=== PATIENT | male | born 1995 | race African-American/Black ===

== ENCOUNTER 2021-01-31 15:38 | Emergency (ER) | payer MEDICAID ==
[~2021-01-31] VITALS: Ht 177.8 cm; Wt 139.0 kg
[2021-01-31] MEDS ORDERED: FAMOTIDINE 20MG/2ML VIAL IV STA (17:41)
[2021-01-31] MEDS ORDERED: ONDANSETRON HCL 4MG/2ML INJ IV STA (17:41)
[2021-01-31] MEDS ORDERED: SODIUM CHLORIDE 0.9% 1,000 ML IV ONE (17:45)
[2021-01-31 18:01] LABS: HEMATOCRIT. 41.6 % (42.0-52.0); HEMOGLOBIN. 14.2 g/dL (14.0-18.0); MEAN CORPUSCULAR HEMOGLOBIN 30.3 pg (28.0-32.0); MEAN CORPUSCULAR VOLUME 89.1 fL (80.0-94.0); PLATELET 159 x1000/uL (130-400); RED BLOOD CELL COUNT 4.67 mill/uL (4.7-6.1); RED CELL DISTRIBUTION WIDTH 13.4 % (11.6-14.6)
[2021-01-31 18:05] LABS: CHLORIDE 103 mEq/L (98-107)
[2021-01-31 18:29] LABS: PLATELET ESTIMATE NORMAL
[2021-01-31] MEDS ORDERED: ONDA4TAB5 MT (19:35)
[2021-01-31 21:05] VITALS: BP 115/76
== END 2021-01-31 21:27 | disposition home or self-care (01) ==
LOC: ER 15:38
DX: R11.2 Nausea with vomiting, unspecified (principal); K29.00 Acute gastritis without bleeding
CPT/HCPCS: 36415; 80053; 83690; 83735; 85025; 96374; 96375; 99284; J2405; J3490; J7030; Z7610

== ENCOUNTER 2021-02-04 15:44 | Emergency (ER) | payer MEDICAID ==
[~2021-02-04] VITALS: Ht 188 cm; Wt 140.0 kg
[~2021-02-04 15:44] MED LIST: ONDA4TAB5 MT
[2021-02-04] MEDS ORDERED: ACETAMINOPHEN 325MG TABLET PO ONE (16:15)
[2021-02-04] MEDS ORDERED: ONDANSETRON HCL 4MG/2ML INJ IV ONE (16:15)
[2021-02-04] MEDS ORDERED: SODIUM CHLORIDE 0.9% 1,000 ML IV ONE ×3 (16:15→20:45)
[2021-02-04 16:37] LABS: BASOPHILS % 1.1 % (0.0-2.0); HEMATOCRIT. 47.1 % (42.0-52.0); HEMOGLOBIN. 15.9 g/dL (14.0-18.0); LYMPHOCYTES % 15.7 % (20.0-50.0); MEAN CORPUSCULAR HEMOGLOBIN 30.2 pg (28.0-32.0); MEAN CORPUSCULAR VOLUME 89.5 fL (80.0-94.0); MONOCYTES % 6.9 % (2.0-8.0); NEUTROPHILS % 76.3 % (40.0-76.0); PLATELET 153 x1000/uL (130-400); RED BLOOD CELL COUNT 5.26 mill/uL (4.7-6.1); RED CELL DISTRIBUTION WIDTH 13.7 % (11.6-14.6)
[2021-02-04 16:43] LABS: CHLORIDE 102 mEq/L (98-107)
[2021-02-04 16:44] LABS: INR 1.2; PROTHROMBIN TIME 13.2 sec (9.6-11.0)
[2021-02-04] MEDS ORDERED: PANTOPRAZOLE SODIUM 40 MG/VIAL IV ONE (16:45)
[2021-02-04 20:23] LABS: CLARITY URINE CLEAR (CLEAR); COLOR URINE DARK YELLOW (YELLOW); KETONES URINE 4+ (NEGATIVE); LEUKOCYTE ESTERASE URINE NEGATIVE (NEGATIVE); NITRITE URINE NEGATIVE (NEGATIVE); OCCULT BLOOD URINE NEGATIVE (NEGATIVE); PROTEIN URINE 2+ (NEGATIVE); SPECIFIC GRAVITY URINE 1.038 (1.005-1.030)
[2021-02-04 20:35] LABS: *AMPHETAMINES SCREEN URINE NEGATIVE (NEGATIVE); *BARBITURATES SCREEN URINE NEGATIVE (NEGATIVE); *BENZODIAZEPINES SCREEN URINE NEGATIVE (NEGATIVE)
[2021-02-04 20:36] LABS: *COCAINE SCREEN URINE NEGATIVE (NEGATIVE); CANNABINOID URINE SCREEN NEGATIVE (NEGATIVE); METHADONE URINE SCREEN NEGATIVE (NEGATIVE); OPIATES URINE SCREEN NEGATIVE (NEGATIVE); PHENCYCLIDINE URINE SCREEN NEGATIVE (NEGATIVE)
[2021-02-04] MEDS ORDERED: CEFTRIAXONE 1 G PREMIX 50 ML IV ONE (21:00)
[2021-02-04] MEDS ORDERED: CEFP200T14 MT (22:10)
[2021-02-04] MEDS ORDERED: ONDA4TAB5 MT (22:10)
[2021-02-04 22:19] VITALS: BP 128/81
== END 2021-02-04 22:58 | disposition home or self-care (01) ==
LOC: ER 15:44
DX: B34.9 Viral infection, unspecified (principal); E86.0 Dehydration
CPT/HCPCS: 36415; 71045; 80053; 80305; 81003; 83690; 85025; 85610; 87086; 93005; 96361; 96365; 96375; 99285; C9113; J0696; J2405; J7030

== ENCOUNTER 2021-02-08 15:38 | Emergency (ER) | payer MEDICAID ==
[~2021-02-08] VITALS: Ht 185.4 cm; Wt 114.0 kg
[~2021-02-08 15:38] MED LIST changes: +CEFP200T14 MT
[2021-02-08] MEDS ORDERED: ACETAMINOPHEN 325MG TABLET PO STA (16:06)
[2021-02-08] MEDS ORDERED: CEFTRIAXONE 1 G PREMIX 50 ML IV ONE (16:15)
[2021-02-08] MEDS ORDERED: ONDANSETRON HCL 4MG/2ML INJ IV ONE (16:15)
[2021-02-08] MEDS ORDERED: SODIUM CHLORIDE 0.9% 1,000 ML IV ONE ×3 (16:15→18:30)
[2021-02-08 16:32] LABS: BASOPHILS % 0.2 % (0.0-2.0); HEMATOCRIT. 44.9 % (42.0-52.0); LYMPHOCYTES % 10.8 % (20.0-50.0); MEAN CORPUSCULAR HEMOGLOBIN 30.3 pg (28.0-32.0); MEAN CORPUSCULAR VOLUME 90.6 fL (80.0-94.0); MEAN PLATELET VOLUME 11.2 fl (7.4-10.4); MONOCYTES % 6.5 % (2.0-8.0); NEUTROPHILS % 82.5 % (40.0-76.0); PLATELET 177 x1000/uL (130-400); RED BLOOD CELL COUNT 4.96 mill/uL (4.7-6.1); RED CELL DISTRIBUTION WIDTH 13.7 % (11.6-14.6)
[2021-02-08 16:38] LABS: CHLORIDE 100 mEq/L (98-107)
[2021-02-08] MEDS ORDERED: OMEP40CA12 MT (19:55)
[2021-02-08] MEDS ORDERED: IBUPROFEN 600MG TABLET PO ONE (20:00)
[2021-02-08 20:52] LABS: CLARITY URINE TURBID (CLEAR); COLOR URINE DARK YELLOW (YELLOW); KETONES URINE 4+ (NEGATIVE); LEUKOCYTE ESTERASE URINE NEGATIVE (NEGATIVE); NITRITE URINE NEGATIVE (NEGATIVE); OCCULT BLOOD URINE TRACE (NEGATIVE); PH URINE 6.5 (4.5-8.0); PROTEIN URINE 3+ (NEGATIVE); SPECIFIC GRAVITY URINE 1.038 (1.005-1.030)
[2021-02-08 21:14] LABS: *AMPHETAMINES SCREEN URINE NEGATIVE (NEGATIVE); *BARBITURATES SCREEN URINE NEGATIVE (NEGATIVE); *BENZODIAZEPINES SCREEN URINE NEGATIVE (NEGATIVE); *COCAINE SCREEN URINE NEGATIVE (NEGATIVE)
[2021-02-08 21:15] LABS: CANNABINOID URINE SCREEN NEGATIVE (NEGATIVE); METHADONE URINE SCREEN NEGATIVE (NEGATIVE); OPIATES URINE SCREEN NEGATIVE (NEGATIVE); PHENCYCLIDINE URINE SCREEN NEGATIVE (NEGATIVE)
[2021-02-08 21:52] VITALS: BP 121/63
== END 2021-02-08 21:53 | disposition home or self-care (01) ==
LOC: ER 15:38
DX: N30.90 Cystitis, unspecified without hematuria (principal); R50.9 Fever, unspecified
CPT/HCPCS: 36415; 80053; 80305; 81003; 85025; 96361; 96374; 96375; 99285; J0696; J2405; J7030

== ENCOUNTER 2023-08-18 14:45 | Emergency (ER) | payer MEDICAID, OTHER ==
[~2023-08-18] VITALS: Ht 182.9 cm; Wt 136.0 kg
[2023-08-18 15:21] VITALS: O2SAT 100
[2023-08-18 21:07] LABS: TROPONIN I HIGH SENSITIVITY 4 ng/L (<78)
[2023-08-18 21:52] VITALS: BP 121/78; PULSE 78; RESP 16; TEMP 98.7
== END 2023-08-18 21:55 | disposition home or self-care (01) ==
LOC: ER 14:47
DX: R07.9 Chest pain, unspecified (principal); M54.9 Dorsalgia, unspecified
CPT/HCPCS: 36415; 71045; 84484; 85379; 93005; 99285